=== PATIENT | female | born 1965 | race Two or more races ===

== ENCOUNTER 2020-04-01 08:30 | Day surgery (SDC) | payer OTHER ==
[~2020-04-01] VITALS: Ht 165.1 cm; Wt 106.6 kg
[2020-04-01] VITALS (9 sets, daily range): BP systolic 124–161; BP diastolic 74–88
[2020-04-01] MEDS ORDERED: LR 1000ml ONE (09:00)
[2020-04-01] MEDS ORDERED: Lidocaine 1% MPF 10mg/ml 5ml ONE (09:00)
--- NOTE | 2020-04-01 09:03 | Anethesia Preoperative Eval ---
Anesthesia Pre-op PMH/ROS General Date of Evaluation: Apr 01, 2020 Time of Evaluation: 09:02 Anesthesiologist: madisyn ASA Score: ASA 3 Mallampati Score Class I : Soft palate, uvula, fauces, pillars visible Class II: Soft palate, uvula, fauces visible Class III: Soft palate, base of uvula visible Class IV: Only hard plate visible Mallampati Classification: Class II Surgeon: juan Diagnosis: gerd, abdominal pain Surgical Procedure: egd/colonoscopy Anesthesia History: none Social History: smoking - former smoker Family History: no anesthesia problems Allergies: Coded Allergies: NAPROXEN (Verified Adverse Reaction, Intermediate, stomach burning, 04/01/20 ) Medications: see eMAR Patient NPO?: Yes Past Medical History Cardiovascular: Reports: HTN Gastrointestinal/Genitourinary: Reports: GERD Neurologic/Psychiatric: Reports: depression/anxiety Endocrine: Reports: DM Musculoskeletal/Integumentary: Reports: OA Other: obesity PSxH Narrative: cholecystectomy Anesthesia Pre-op Phys. Exam Physician Exam Last Vital Signs Date Time Temp Pulse Resp B/P (MAP) Pulse Ox O2 Delivery O2 Flow Rate FiO2 04/01/20 09:10 97.4 59 18 135/83 98 Room Air Constitutional: NAD Neurologic: CN 2-12 intact Cardiovascular: RRR Respiratory: CTA Gastrointestinal: S/NT/ND Airway Exam Mallampati Score: Class II MO: limited Neck: short TMD: 2fb ROM: limited Teeth: missing Anesthesia Pre-op A/P Labs Microbiology Date/Time Source Procedure Growth Status 03/28/20 13:45 Nasopharynx SARS-CoV-2 RdRp Gene Assay - Final Complete Risk Assessment & Plan Assessment: asa3 Plan: mac Status Change Before Surgery: No Pre-Antibiotics Drug: Reema Miller MD Apr 01, 2020 09:03
--- NOTE | 2020-04-01 09:07 | Short Stay Surgery H&P ---
History of Present Illness History of Present Illness Chief Complaint Generalized Abdominal pains/GERDs HPI Rhonda Holcomb is a 54 year old female who was admitted on for Abdominal Pain, Gerd Patient History PAST MEDICAL HISTORY: (1) Hypertension (2) Diabetes (3) History of cholecystectomy (4) Hx of shoulder surgery Review of Systems Cardiovascular: Reports: hypertension Respiratory: Reports: no symptoms Skeletal: Reports: trauma Gastrointestinal: Reports: gastro esophageal reflux disease Genitourinary: Reports: no symptoms Neurologic: Reports: no symptoms Endocrine: Reports: diabetes - type 2 Hematologic: Reports: no symptoms Physical Exam Skin: normal HENT: normal Heart: normal Lungs: normal Abdomen: abnormal Extremities: normal Genitourinary: normal Plan Plan of Care Upper and lower GI endoscopy Preop Interventions None Summary of Findings see the reports Attestation Are the patient's medical conditions optimized for surgery? Attestation Response: yes Juana Chiu MD Apr 01, 2020 09:07
--- NOTE | 2020-04-01 09:08 | Pre-Procedure Note/Attestation ---
Pre-Procedure Note/Attestation Complete Prior to Procedure Planned Procedure: left Procedure Narrative: Examination of the upper and the lower GI tracts via endoscopy with obtaining possible biopsies. Indications for Procedure Pre-Operative Diagnosis: R/O Peptic ulcer/esophagitis/gastritis/colitis Attestation I attest that I discussed the nature of the procedure; its benefits; risks and complications; and alternatives (and the risks and benefits of such alternatives ), prior to the procedure, with the patient (or the patient's legal teleservices representative). I attest that, if there was a reasonable possibility of needing a blood transfusion, the patient (or the patient's legal teleservices representative) was given the [place] [employer] standardized written summary, pursuant to the [place]coe [place] Blood Safety Act ([place] Health and Safety Code # 1645, as amended). I attest that I re-evaluated the patient just prior to the surgery and that there has been no change in the patient's H&P, except as documented below: Juana Chiu MD Apr 01, 2020 09:08
[2020-04-01] MEDS ORDERED: OMEPRAZOLE20 M2 ORAL (09:09)
[2020-04-01] MEDS ORDERED: LR 1000ml 1,000 ML IVLG SCH (09:27)
[2020-04-01] MEDS ORDERED: fentaNYL 100 mcg/2 mL IV PRN (09:30)
[2020-04-01] MEDS ORDERED: DiphenhydrAMINE 50mg/ml Inj IVP PRN (09:30)
[2020-04-01] MEDS ORDERED: Midazolam 2mg/2ml Inj IVP PRN (09:30)
[2020-04-01] MEDS ORDERED: Atropine Inj 1mg/10ml Syr IV PRN (09:30)
--- NOTE | 2020-04-01 09:56 | Endoscopy Procedure Note ---
Endoscopy Procedure Note General Indication for Procedure: Abdominal pains/diarrhea/GERDs Procedures Performed: EGD - Minimal gastritis/antritis, otherwise normal Upper GI. endoscopy. Biopsies obtained from antral area and gastric body., colonoscopy - Completely normal total colonoscopy Specimen: yes Pt Tolerated Procedure Well: Yes Estimated Blood Loss: none Anesthesia Anesthesiologist: Dr. Oh Anesthesia: moderate sedation Medications Medication Given: see anesthesia record Inserted Devices Implant(s) used?: No Quality Quality of Bowel Preparation: Fair Did scope reach the cecum?: Yes Was there any complications?: No GI Core Measures 50 yrs or older w/o bx or poly: Yes 10yrs. F/U recommended: Yes If not recommended, why?: 18 years or older w/prev. colo: No Med reason:<3 yrs.: System Reason:<3 yrs.: Juana Chiu MD Apr 01, 2020 09:56
--- NOTE | 2020-04-01 09:58 | Discharge Instructions ---
Discharge Instructions Discharge Instructions Follow up with: No need for follow up/results were normal endoscopy For Congestive Heart Failure Reminder Report to your physician any weight gain of 5 pounds or more in one week. Juana Chiu MD Apr 01, 2020 09:58
--- NOTE | 2020-04-01 10:40 | Immediate Post-Op Evaluation ---
Immediate Post-Op Evalulation Immediate Post-Op Evalulation Procedure: egd/colonoscopy w/bx Date of Evaluation: Apr 01, 2020 Time of Evaluation: 10:16 IV Fluids: 400ml lr Blood Products: none Estimated Blood Loss: negligible Blood Pressure Systolic: 130 Blood Pressure Diastolic: 74 Pulse Rate: 61 Respiratory Rate: 18 O2 Sat by Pulse Oximetry: 100 Temperature (Fahrenheit): 97.1 Pain Score (1-10): 0 Nausea: No Vomiting: No Complications none Patient Status: awake, reacts, patent Hydration Status: adequate Drug: Reema Miller MD Apr 01, 2020 10:40
--- NOTE | 2020-04-01 10:41 | 48 Hour Post Anesthesia Eval ---
Post Anesthesia Evaluation Procedure: egd/colonoscopy w/bx Date of Evaluation: Apr 01, 2020 Time of Evaluation: 10:18 Blood Pressure Systolic: 120 0: 74 Pulse Rate: 65 Respiratory Rate: 18 Temperature (Fahrenheit): 97.1 O2 Sat by Pulse Oximetry: 100 Airway: patent Nausea: No Vomiting: No Pain Intensity: 0 Hydration Status: adequate Cardiopulmonary Status: stable Mental Status/LOC: patient returned to baseline Post-Anesthesia Complications: none Follow-up care needed: N/A Reema Oh MD Apr 01, 2020 10:41
--- NOTE | 2020-04-01 13:15 | Pre-op HX & Phy Repo 2 SIG ---
DATE OF ADMISSION: 04/01/2020 HISTORY OF PRESENT ILLNESS: The patient is a 54-year-old female who is being seen prior to undergoing the procedure of upper and lower GI endoscopic examination for which she has been authorized to receive for evaluation of gastrointestinal conditions that she has suffered subsequent to her work injury. 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 She basically reports to me that she is suffering from experiencing pain all over the abdomen mostly related over the epigastric area. Occasionally, this pain radiates towards the chest. Mostly she is suffering from severe gastroesophageal reflux consistent with heartburn and GERD. For which she has been treated with medications in the past such as proton pump inhibitor and H2 blockers. However, currently she is continuing to take Pepto-Bismol and omeprazole which seems to which she is responding good. She also complains of occasional having difficulty swallowing. However, she is denying any vomiting or particular nausea. There is no history of vomiting blood or passing bright red blood per rectum. She, however, does complain of diarrhea, which seems to be chronic with experiencing excessive gas and bloating. She reports to me that she cannot tolerate regular milk as well. As it was mentioned earlier, the patient was injured at job site and received numerous medications including strong narcotics, which is [place] and also ibuprofen which she took for a long period of time at the dose of 800 mg on a daily basis after her surgery, which occurred in 2018 and it was in the right elbow and right shoulder for torn ligament. The patient also was seen by another podiatric assistant, Dr. Manuel Price some time ago, who recommended the patient should undergo another upper endoscopy along with colonoscopic examination to basically evaluate the side effects of this medication causing the gastrointestinal symptoms as mentioned above. The patient reports that she already had an upper GI endoscopic examination in April 2019, however, the report was not available for me to see. Again, per recommendation of Dr. Price, therefore, we are going to proceed with the performance of upper and lower GI endoscopic examination that have been authorized. PAST MEDICAL HISTORY: Basically, the patient at this time denies having any medical problems, though in the medical records it was reported to me that she was diabetic and she also does have hypertension with possible immune disorder ? PAST SURGICAL HISTORY: The patient has had history of cholecystectomy in July 2019. Also surgery for the right shoulder and right elbow as well, which seemed to be secondary to the injury that she has had at the job site as mentioned earlier. ALLERGIES: Nonsignificant. FAMILY HISTORY: Also nonsignificant. HABITS: She denies drinking alcohol or smoking cigarettes. REVIEW OF SYSTEMS: Basically, history of present illness. She denies having any major chest pain right now. She denies any shortness of breath or cough. No palpitation or angina. She also denies any urinary symptoms such as dysuria, pyuria, or hematuria. No neurological symptoms reported such as tingling sensations or numbness or weaknesses. PHYSICAL EXAMINATION: GENERAL: At this time reveals alert and oriented, very pleasant female, who is significantly obese, but in no acute distress and answers the questions quite properly. VITAL SIGNS: Temperature 97.4, pulse rate 59, respiratory rate 18, blood pressure 125/83. Oxygen saturation on room air is 98%. HEENT: Normocephalic. Pupils are equal in size and reactive to light and accommodation. No visible jaundice. Buccal cavity, tongue midline, well hydrated. No ulcers. NECK: Supple. No JVD, thyromegaly, or adenopathy. CHEST: Clear to auscultation and percussion. No rales or rhonchi. HEART: S1, S2 normal. Regular rhythm. No gallops or murmur. ABDOMEN: Soft but quite obese. There is no palpable mass. No organomegaly. There is some tenderness all over the abdomen in all the angles and also in the epigastric area to some extent. Bowel sounds are present. EXTREMITIES: No particular findings. NEUROLOGIC: Nonsignificant. PREOPERATIVE IMPRESSION: 1. Epigastric pain with history of heartburn, question of etiology, rule out NSAID-induced gastropathy, rule out peptic ulcer disease, gastritis, esophagitis, duodenal ulcer. 2. Generalized abdominal pain of uncertain etiology associated with diarrhea, rule out colitis versus IBS-D aggravated by side effects of medications and anxiety and stress related to work accident. 3. Obesity. 4. Reported history of hypertension and diabetes. RECOMMENDATIONS: At this time, I examined the patient. She looks stable and she understands the risks and benefits of the procedure and she would agree to undergo the procedure of upper and lower GI endoscopic examination and signed the consent. Said Luciano Chiu DR: HOLLY JOB#: [id number] CC:
--- NOTE | 2020-04-01 14:30 | Operative Note - Dictated ---
DATE OF OPERATION: 04/01/2020 SURGEON: Juana Chiu MD. PROCEDURE: Total colonoscopy. PREOPERATIVE DIAGNOSIS: Generalized abdominal pain with diarrhea, rule out colitis. POSTOPERATIVE DIAGNOSIS: Completely total normal colonoscopy. MEDICATION USED: Per Dr. Deleon, anesthesiologist. INSTRUMENT: GIF Olympus video colonoscope. DESCRIPTION OF PROCEDURE: The patient after arriving in the endoscopy unit, was told about risks and benefits of the procedure, which she accepted and signed informed consent. She was then put on the left lateral decubitus position. After adequate IV sedation, the scope was gently passed through the anal area and retroflexion maneuver was applied in the rectum as well, which did not reveal any major hemorrhoids. The rest of the rectum was completely normal with no pathology. At this time, the scope was straightened and passed into the rectosigmoid angle and from there was pushed into the left descending colon. Basically, colonic mucosa looked completely normal though there was fluid stools in the colon consistent with fair perforation and constantly the colon had to be irrigated. However, there was no polyps or tumors, etc. No evidence of inflammatory process such as colitis or strictures. At this time, the scope was gradually advanced towards left the splenic flexure, was guided into transverse colon all the way to the right descending colon. All these areas again remained to be completely normal. After advancing the scope into the descending colon all the way to the base of the cecum, all these areas again remained to be completely normal without any pathology. Finally within 7 minutes the scope was gradually pulled out and reexamination of the colon revealed no other pathology at this time, and it was felt that the total colonoscopy was completely within normal limits. The patient tolerated the procedure well and left the endoscopy room in a good condition. Juana Chiu M.D. DR: HOLLY JOB#: [id number] CC:
--- NOTE | 2020-04-01 14:45 | Operative Note - Dictated ---
DATE OF OPERATION: 04/01/2020 SURGEON: Juana Chiu MD. PROCEDURE: Esophagogastroduodenoscopy with biopsy. PREOPERATIVE DIAGNOSES: Abdominal pain, epigastric pain, history of chronic gastroesophageal reflux, rule out NSAID-induced gastropathy, peptic ulcer disease, esophagitis. POSTOPERATIVE DIAGNOSIS: Mild gastritis mostly inflammatory process in the antrum consistent with antritis. Biopsy was taken from the antrum and mid body of the stomach. MEDICATION USED: Per Dr. Deleon, anesthesiologist. INSTRUMENT: GIF Olympus upper GI video endoscope. DESCRIPTION OF PROCEDURE: The patient after arriving an endoscopy unit, was told about risks and benefits of the procedure, which she accepted and signed informed consent. She was then put on the left lateral decubitus position. After adequate IV sedation, the scope was gently passed through the cricopharyngeal area, was lodged into the upper esophagus and gradually advanced towards gastroesophageal junction. The entire length of the esophagus looked to be completely normal. No evidence of varices, inflammatory process, ulcers, etc. No strictures. GE junction also looked completely normal without evidence of Rivas's mucosa or hiatal hernia. At this time, the scope was advanced into the stomach, gastric cavity was distended with insufflation of air and gradually from the fundus, the scope was advanced towards the body and the antrum of the stomach. It revealed that there were mild inflammatory process basically over the body of the stomach and mostly significantly to some extent in the antral area consistent with mild gastritis, but no ulcers, tumors, polyps, bleeding sites were noted. At this time, a retroflexion maneuver was applied and the area of the gastroesophageal junction was examined in a closer fashion, which revealed basically normal findings. Finally, scope was straightened and a biopsy from the gastric body and after that another biopsy from the antral area was obtained and subsequently scope was passed through the pylorus. First and second portion of duodenum were found to be completely normal. Finally, scope was pulled out and the procedure was terminated. The patient tolerated the procedure well. Juana Chiu M.D. DR: CORDELIA JOB#: [id number] CC:
== END 2020-04-01 12:00 | disposition home or self-care (01) ==
LOC: GAS 08:30
DX: R10.13 Epigastric pain (principal); K21.9 Gastro-esophageal reflux disease without esophagitis; K29.50 Unspecified chronic gastritis without bleeding; E66.9 Obesity, unspecified; E11.9 Type 2 diabetes mellitus without complications; I10 Essential (primary) hypertension; Z90.49 Acquired absence of other specified parts of digestive tract; Z68.39 Body mass index [BMI] 39.0-39.9, adult; R19.7 Diarrhea, unspecified
CPT/HCPCS: 43239; 45378; 82962; 94003; J2704; J7120; U0002; 94150